=== PATIENT | female | born 1990 | race Caucasian/White ===

== ENCOUNTER 2023-11-15 06:14 | Inpatient (IN) ==
--- NOTE | 2023-11-27 09:01 | Anesthesiology Consultation ---
Date of Service November 27, 2023 Assessment & Plan (1) Encounter for pre-operative examination: - Per inside sales account representative on 11/27/23: No known infectious disease contacts, current infectious disease symptoms in past 10 days or COVID positive test result in the past 30 days. Chart Review Chart Review: medical data entry clerk initiated History Surgery Operation Date: 12/01/23 07:30 Proposed Procedures p Section in LD (Delivery of Baby through Abdominal Incision) - Jose Wyatt MD, ARRONOG s Bilateral Tibal Ligation - Jose Wyatt MD, FACOG Height/Weight Height: 5 ft 6 in Weight: 76.657 kg Allergies Allergy/AdvReac Type Severity Reaction Status Date / Time No Known Allergies Allergy Verified 11/27/23 08:31 Medications Home Medications Medication Instructions Recorded Confirmed Last Taken vits no.124-ferrous fum 1 tab PO DAILY 10/09/23 11/27/23 10/08/23 21:00 27 mg iron-folic acid 800 mcg tablet ( Vitamin) Past Medical History Medical History (Updated 11/27/23 @ 08:57 by Anabell Garcia PA-C) Anxiety no current meds History of COVID-19 (~2021) not hospitalized-symptoms resolved per PAT RN call Migraine hx Past Family History Family History Grandmother Colorectal cancer Breast cancer Ovarian cancer Mother Depression Seizure Brain cancer Grandfather Prostate cancer Myocardial infarction Grandfather (Maternal) Colorectal cancer Grandmother (Maternal) Skin cancer Past Surgical History Surgical History History of colonoscopy 2021 History of tonsillectomy Hx of laparoscopy Social History Smoking Status: Never smoker Do You Dip or Chew Tobacco: No Hx Alcohol Use: Yes (hx, not while ) Alcohol type: wine alcohol intake frequency: a few times a week Hx Substance Use: No substance use type: does not use
[2023-12-01 05:49] LABS: Basophils # (auto) 0.03 K/uL (0.00-0.20); Basophils % (auto) 0.3 %; Eosinophils # (auto) 0.13 K/uL (0.00-0.50); Eosinophils % (auto) 1.5 %; Hematocrit (blood only) 38.8 % (37.0-47.0); Hemoglobin 13.3 g/dl (12.0-16.0); Immature Granulocytes # (auto) 0.09 K/uL (0.01-0.20); Lymphocytes # (auto) 1.22 K/uL (1.20-3.40); Lymphocytes % (auto) 14.2 %; Mean Corpuscular Hemoglobin 31.1 pg (25.0-34.0); Mean Corpuscular Hgb Conc 34.3 g/dL (32.0-36.0); Mean Corpuscular Volume 90.9 fL (80.0-100.0); Monocytes # (auto) 0.69 K/uL (0.11-0.59); Neutrophils # (auto) 6.46 K/uL (1.40-6.50); Platelet Count 187 K/uL (130-400); RDW Coefficient of Variation 13.9 % (11.5-14.5); RDW Standard Deviation 45.9 fL (36.4-46.3); Red Blood Count 4.27 M/uL (4.20-5.40); White Blood Count 8.62 K/ul (4.8-10.8)
[2023-12-01] MEDS: LACTATED RINGER'S 1,000 ML IV SCH ×2 (05:50→19:29)
[2023-12-01] MEDS ORDERED: LACTATED RINGER'S 1,000 ML IV SCH (06:00)
[2023-12-01] MEDS ORDERED: DEXAMETHASONE SOD INJ 4 MG/ML VIAL ONE (06:35)
[2023-12-01] MEDS ORDERED: OXYTOCIN 10 UNITS/ML VIAL ONE (06:35)
[2023-12-01] MEDS ORDERED: ONDANSETRON INJ 2 MG/ML 2 ML VIAL ONE (06:35)
[2023-12-01] MEDS ORDERED: ePHEDrine sulfate 50 MG/5 ML SYR ONE (06:35)
[2023-12-01] MEDS ORDERED: PHENYLEPHRINE 100MCG/ML 10ML SYR IV ONE (06:35)
[2023-12-01] MEDS ORDERED: MoRPHine SULFATE PF 1 MG/ML 10 ML AMP/VIAL ONE (06:35)
[2023-12-01] MEDS ORDERED: KETOROLAC 30 MG/ML VIAL ONE (06:35)
[2023-12-01] MEDS ORDERED: fentaNYL citrate PF 100 MCG/2 ML VIAL ONE (06:36)
--- NOTE | 2023-12-01 06:39 | History & Physical Report ---
Date of Service December 01, 2023 Assessment & Plan (1) Breech presentation at : Plan: offered version, declines section. The patient was counseled to the nature of the procedure including alternatives such as labor. Risks were discussed including bleeding infection injury to bowel bladder ureter vessels and even baby. Deep Vein thrombosis, pulmonary embolus discussed. Breakdown of incision reviewed. Deep vein thrombosis pulmonary embolus hernia and failure of the incision to heal were discussed Patient verbalized understanding of this and was given ample time to ask questions Admission and Anticipated Discharge Date Admission Date: December 01, 2023 History of Present Illness Primary Care Provider: Duc Hinds MD Estimated Delivery Date Method Current WG Current Estimate 12/05/23 LMP (Certain) 39w 1d Other Estimates 12/05/23 Ultrasound #1 39w 1d LMP: 12/04/22 : 3 Full term: 2 Premature: 0 Total Number of Induced Abortions: 0 Total Number of Spontaneous Abortions: 0 Ectopics: 0 Multiple births: 0 Number of Living Children: 2 and Delivery Plans Reports received flu shot Echo [facility] for bilat EIF's- (08/16/23 @ [facility])--normal *low risk cfdna BREECH PRESENTATION C/S SCHEDULED FOR 12/01/[address] RIVERO Allergies Allergy/AdvReac Type Severity Reaction Status Date / Time No Known Allergies Allergy Verified 11/29/23 14:11 Home Medications Medication Instructions Recorded Confirmed Type vits no.124-ferrous fum 1 tab PO DAILY 10/09/23 12/01/23 History 27 mg iron-folic acid 800 mcg tablet ( Vitamin) Patient History Medical History (Updated 12/01/23 @ 06:39 by Jose Rivero MD, FACOG) History of COVID-19 (~2021) not hospitalized-symptoms resolved per PAT RN call Anxiety no current meds Migraine hx Surgical History Hx of laparoscopy History of colonoscopy 2021 History of tonsillectomy Family History Grandmother Colorectal cancer Breast cancer Ovarian cancer Mother Depression Seizure Brain cancer Grandfather Prostate cancer Myocardial infarction Grandfather (Maternal) Colorectal cancer Grandmother (Maternal) Skin cancer Social History Smoking Status: Never smoker Second Hand Exposure: No; Do You Dip or Chew Tobacco: No; Tobacco Cessation Education Requested by Patient: No Hx Alcohol Use: Yes (hx, not while ) Alcohol type: wine Hx Substance Use: No Preferred Language: Qatari Communication Ability: Effective Visual Impairment: No Limitations Hearing Ability: Normal Distribution Lead Required: No Beliefs That Will Affect Care: None marital status: Single marital status details: Amish (35) [phone] Current Living Situation: Spouse and Family Current Living Situation Comment: Loves with FOB, 2 children current occupational status: employed current occupation: [employer] Other Information That Helps Us Care for You: No Feels Safe at Home: Yes Safety Concerns: Feels Safe At This Time Childhood Exposure to Second-Hand Smoke: No Diet: regular Gender Identity: Female Assistive Devices: Contacts and Glasses Physical Exam Constitutional: WD/WN, vitals as above well developed and well nourished Respiratory: normal respiratory effort, lungs clear to auscultation normal respiratory effort Cardiovascular: RRR, no murmur, no edema Gastrointestinal (Abdomen): normal bowel sounds, soft, nontender, no hepatosplenomegaly Results & Data Vital Signs (Past 12 Hours) Vital Signs Temp Pulse Resp BP 12/01/23 06:36 74 102/63 12/01/23 05:32 90 109/70 12/01/23 05:30 18 12/01/23 05:30 98.6 F 18 Coding Level of Care Code None Diagnoses Breech presentation at O32.1XX0
[2023-12-01] MEDS: CITRIC ACID/SODIUM CITRATE 15 ML UDC PO SCH (07:04)
[2023-12-01] MEDS: ceFAZolin 2000MG 2,000 MG/15 ML SYR IV SCH (07:14)
[2023-12-01] MEDS ORDERED: LACTATED RINGER'S 500 ML IV PRN (08:09)
[2023-12-01] MEDS ORDERED: NALOXONE HCL 1 MG in SODIUM CHLORIDE 0.9% 1,000 ML IV PRN (08:09)
[2023-12-01] MEDS ORDERED: NALBUPHINE HCL 5 MG in SYRINGE 0 ML IV PRN (08:09)
[2023-12-01] MEDS ORDERED: HYDROmorphone INJ 0.5 MG/0.5 ML SYR IV PRN (08:09)
[2023-12-01] MEDS ORDERED: ePHEDrine sulfate 50 MG/ML AMP IV PRN (08:09)
[2023-12-01] MEDS ORDERED: diphenhydrAMINE 50 MG/ML VIAL IV PRN (08:09)
[2023-12-01] MEDS ORDERED: NALOXONE HCL 0.08 MG in SYRINGE 1.8 ML IV PRN (08:09)
[2023-12-01] MEDS ORDERED: NALOXONE HCL 0.4 MG/1 ML VIAL/CARP IV PRN (08:09)
[2023-12-01] MEDS ORDERED: DC INTRASPINAL MORPHINE SCH (08:15)
[2023-12-01] MEDS ORDERED: NO NARCOTICS OR SEDATIVES SCH (08:15)
[2023-12-01] MEDS ORDERED: MIDAZOLAM HCL 1 MG/ML 2ML VIAL ONE (08:21)
--- NOTE | 2023-12-01 08:49 | Operative Report ---
Post Operative Report Pre & Post Diagnosis Operation Date: 12/01/23 07:30 Pre-Op Diagnosis: Breech presentation at term. Requests sterilization. Post-Op Diagnosis: Breech presentation at term. Requests sterilization. Delivery of live male child at 0803. I identified the patient and participated in the time-out.: Yes Procedure Operation Date: 12/01/23 07:30 Actual Procedures p Section through lower uterine transverse incision. Delivery of live male child at 0803. - Jose Wyatt MD, FACOG s Bilateral Tibal Ligation - Jose Wyatt MD, FACOG Surgeon Jose Wyatt MD, FACOG Head Rigger Dr. Barbosa Quantitative Blood Loss (QBL) 615 Findings Consistent with Post-Op Diagnosis Specimens Cord blood Description of Procedure Regional anesthetic had been given by anesthesia patient was prepped and draped with a leftward tilt preoperative antibiotics had been given in appropriate timing by anesthesiology. Once the prep was allowed to fully dry timeout was performed. Pickups with teeth were used to test the incision area was found to be adequate for incision as the patient did not feel sharp pain. Scalpel was used to make a Pfannenstiel incision on the lower abdomen. We then cut through the subcutaneous fat down to the level of the anterior rectus sheath fascia this was cut in the midline and then extended laterally with the curved Wallace scissors. At this stage we then placed 2 Marcel clamps on the anterior aspect of the fascia. Using the curved Wallace's we are able to dissect the fascia superiorly away from the rectus muscles. Care was taken to maintain hemostasis. Marcel clamps were then placed to the inferior aspect of the anterior sheath of the fascia. Fascia was then dissected away from the rectus muscles inferiorly towards the pubic bone. A Marcel was then placed in the midline both inferiorly and superiorly. This was to allow exposure by retraction rectus muscles were in the midline with were then able to cut through the peritoneum and then enter the peritoneal cavity. Opening was enlarged to allow exposure of the peritoneal cavity both superiorly and inferiorly. Once adequate space was obtained a bladder retractor was placed to expose the lower segment Metzenbaums were used to dissect the bladder flap inferiorly away from the uterus. This was done sharply bladder retractor was then repositioned to expose the lower segment of the uterus Fresh scalpel was used to make a low transverse incision on the uterus. Uterus was then entered bluntly with the operators finger, membranes ruptured and the opening was enlarged using the operators fingers bluntly pulling superiorly and inferiorly to allow exposure. Baby had been confirmed as sarah breech position by ultrasound prior to the procedure it was the buttocks presenting these were flexed and then elevated the back was then rotated to anterior position gentle traction on the baby delivering both legs arms were swept towards the chest and delivered there was a nuchal cord loosely around the baby's head and baby was delivered without difficulty or excessive force male infant live vigorous . Fluid was clear cord clamped and cut cord blood obtained baby handed to pediatrics. Placenta removed was removed with traction we ensure the entire placenta was removed with a moist lap sponge into the uterus Uterus was then exteriorized. IV Pitocin had been started by anesthesia tone improved there were no extensions the uterus was then closed using 0 Monocryl in a 2 layer closure the first layer closed in a running locked fashion from left to right and then a second closure from left to right in a running nonlocked fashion. At this stage hemostasis was excellent. Patient had desired tubal ligation this was confirmed before the procedure the right fallopian tube was grasped with a [place] using the LigaSure we carefully dissected the fallopian tube from the attachments and vessels. Coagulating then cutting tube was then removed at the isthmic and. Care was made to ensure coagulation and excellent hemostasis The exact same process was repeated on the right side should be noted once the uterus was placed back in the peritoneal cavity the tubal ligation sites were inspected and hemostatic Uterus was placed back in the peritoneal cavity with suction irrigation out and inspection of the uterus at this stage revealed excellent hemostasis Retractors were removed urine color was clear at this stage of the case we inspected the rectus muscles they were hemostatic fascia was closed with 0 Vicryl subcutaneous fat was irrigated and closed with 3-0 Vicryl skin closed with 4-0 subcuticular Monocryl I attest to the content of the Intraoperative Record and any orders documented therein. Any exceptions are noted below. OB Procedure Charges [id number] Add on Tubal for C/S
--- NOTE | 2023-12-01 08:52 | Anesthesiology Progress Note ---
Date of Service December 01, 2023 Anesthesia Post Procedure Vital Signs Vital Signs: Temp Pulse Resp BP Pulse Ox 12/01/23 08:50 72 98 12/01/23 08:46 73 112/66 91 12/01/23 07:02 70 110/66 12/01/23 06:36 74 102/63 12/01/23 05:32 90 109/70 12/01/23 05:30 18 12/01/23 05:30 37.0 C 18 Transfer of Care Handoff Completed per policy Notes Mental Status: alert / awake / arousable and participated in evaluation Patient Amnestic to Procedure: No Nausea / Vomiting: adequately controlled Pain: adequately controlled Airway Patency, RR, SpO2: stable & adequate BP & HR: stable & adequate Hydration State: stable & adequate Neuraxial Anesthesia: was administered and sensory block is resolving Anesthetic Complications: no major complications apparent and Pt Satisfied with anesthetic care
[2023-12-01] MEDS ORDERED: HYDROCORTISONE ACETATE 25 MG SUPP PR PRN (09:09)
[2023-12-01] MEDS ORDERED: SENNA 8.6 MG TAB PO PRN (09:09)
[2023-12-01] MEDS ORDERED: BENZOCAINE 20% SPRY 85 APPLN/85 GM CAN EXT PRN (09:09)
[2023-12-01] MEDS ORDERED: MAGNESIUM HYDROXIDE SUSP 30 ML UDC PO PRN (09:09)
[2023-12-01] MEDS: OXYTOCIN 20 UNITS/LR 1,002 ML IV SCH (11:05)
[2023-12-01] MEDS: ONDANSETRON INJ 2 MG/ML 2 ML VIAL IV PRN (12:24)
[2023-12-01] MEDS: KETOROLAC 30 MG/ML VIAL IV PRN (12:39)
[2023-12-01] MEDS: SIMETHICONE 80 MG CHEW PO SCH (13:05)
[2023-12-01] MEDS: PROMETHAZINE HCL 6.25 MG in SODIUM CHLORIDE 0.9% 50 ML IV PRN (13:48)
[2023-12-01] MEDS: DOCUSATE SODIUM 100 MG CAP PO SCH (21:50)
[2023-12-02] MEDS: DIPHTHER/TETAN/PERTUS Vaccine (Tdap, Adol/Adult) 0.5mL IM ONE (01:44)
[2023-12-02] MEDS ORDERED: diphenhydrAMINE Capsule 25 MG CAP PO PRN (02:09)
[2023-12-02] MEDS ORDERED: PROMETHAZINE HCL 25 MG in SODIUM CHLORIDE 0.9% 50 ML IV PRN (02:09)
[2023-12-02] MEDS ORDERED: ONDANSETRON INJ 2 MG/ML 2 ML VIAL IV PRN (02:09)
[2023-12-02] MEDS ORDERED: diphenhydrAMINE 50 MG/ML VIAL IV PRN (02:09)
[2023-12-02] MEDS ORDERED: KETOROLAC 30 MG/ML VIAL IV PRN (02:09)
[2023-12-02] MEDS: IBUPROFEN 600 MG TAB PO PRN (05:22)
[2023-12-02] MEDS: oxyCODONE/ACETAMINOPHEN 5mg/325mg TAB PO PRN (05:22)
--- NOTE | 2023-12-02 06:46 | Obstetrical Progress Note ---
Date of Service December 02, 2023 Assessment & Plan (1) Encounter for care and examination after delivery: 33 yo POD 1 from primary CS, doing well -Meeting all pp milestones -Rh+/rubella immune/ -Continue routine care Subjective Ambulation: ambulating normally Voiding: no voiding problems Passing Gas:: No Diet Tolerance:: regular diet Lochia:: Small Feeding Type:: breast feeding Pain well managed with medication Review of Systems Denies fevers, chills, n/v, PHAN, CP, SOB Physical Exam Constitutional WD/WN, vitals as above no acute distress Respiratory normal respiratory effort, lungs clear to auscultation Cardiovascular RRR, no murmur, no edema Gastrointestinal (Abdomen) Percussion/Palpation: abdomen soft; abdomen nontender fundus firm at umbilicus and NT, dressing c/d/i Musculoskeletal BLE symmetric, nonerythematous, nontender Results & Data Vital Signs (Past 12 Hours) Vital Signs Temp Pulse Resp BP Pulse Ox O2 Del Method 12/02/23 03:00 98.2 F 80 18 99/64 L 97 Room Air 12/02/23 02:20 18 96 12/02/23 01:25 18 91 12/02/23 00:20 Room Air 12/02/23 00:20 97.5 F L 70 18 92/56 L 95 Room Air 12/02/23 00:20 18 95 12/01/23 23:55 18 94 12/01/23 22:30 20 96 12/01/23 21:55 20 94 12/01/23 20:55 20 96 12/01/23 19:30 20 96 12/01/23 19:30 98.4 F 81 20 89/49 L 96 Room Air 12/01/23 18:55 20 95
[2023-12-02] MEDS: MoRPHine SULFATE PF 1 MG/ML 10 ML AMP/VIAL INT SPINAL ONE (07:29)
[2023-12-02] MEDS: SODIUM CHLORIDE 0.9% 1,000 ML IV SCH (07:29)
[2023-12-02 08:31] LABS: Basophils # (auto) 0.03 K/uL (0.00-0.20); Basophils % (auto) 0.3 %; Eosinophils # (auto) 0.08 K/uL (0.00-0.50); Eosinophils % (auto) 0.8 %; Hematocrit (blood only) 34.4 % (37.0-47.0); Hemoglobin 11.2 g/dl (12.0-16.0); Lymphocytes # (auto) 0.82 K/uL (1.20-3.40); Mean Corpuscular Hemoglobin 30.9 pg (25.0-34.0); Mean Corpuscular Hgb Conc 32.6 g/dL (32.0-36.0); Mean Platelet Volume 10.6 fL (9.4-12.4); Monocytes % (auto) 6.8 %; Neutrophils # (auto) 8.57 K/uL (1.40-6.50); Neutrophils % (auto) 83.1 %; Platelet Count 166 K/uL (130-400); RDW Coefficient of Variation 14.1 % (11.5-14.5); RDW Standard Deviation 48.5 fL (36.4-46.3); Red Blood Count 3.62 M/uL (4.20-5.40)
[2023-12-02] MEDS: FERROUS SULFATE 325 MG TAB PO SCH (08:37)
[2023-12-02] MEDS: PRENATAL VITAMIN 1 TAB PO SCH (08:37)
[2023-12-02] MEDS: bisacodyL 5 MG TABEC PO SCH (19:26)
[2023-12-03 07:07] LABS: Hematocrit (blood only) 33.7 % (37.0-47.0); Hemoglobin 11.3 g/dl (12.0-16.0)
[2023-12-03] MEDS ORDERED: bisacodyL 10 MG SUPP PR PRN (08:43)
--- NOTE | 2023-12-03 08:54 | Obstetrical Progress Note ---
Date of Service December 03, 2023 Assessment & Plan (1) Encounter for care and examination after delivery: Postoperative from section patient meets discharge criteria as she is ambulating well tolerating an oral diet has minimal bleeding and no extremity pain. Discharge instructions were reviewed and prescriptions were sent to her pharmacy of choice patient advised to call with any concerns and follow-up in the office discussed Incision is clean dry and intact extremity exam negative Subjective Ambulation: ambulating normally Voiding: no voiding problems Passing Gas:: Yes Diet Tolerance:: regular diet Lochia:: Small Feeding Type:: breast feeding Physical Exam Constitutional WD/WN, vitals as above well developed and well nourished Respiratory normal respiratory effort, lungs clear to auscultation normal respiratory effort Cardiovascular RRR, no murmur, no edema Gastrointestinal (Abdomen) normal bowel sounds, soft, nontender, no hepatosplenomegaly Results & Data Vital Signs (Past 12 Hours) Vital Signs Temp Pulse Resp BP Pulse Ox O2 Del Method 12/03/23 07:33 98.2 F 68 16 110/74 97 Room Air 12/03/23 04:40 97.9 F 81 18 100/63 97 Room Air
== END 2023-12-03 10:40 | disposition home or self-care (01) | DRG 785 ==
LOC: 4S1 12-01 05:19 → EDSTATUS 12-01 10:35 → 4E2 12-01 11:46
PROC: M.PPTLD (2023-12-01 07:30)
DX: Z3A.39 39 weeks gestation of pregnancy; O69.81X0 Labor and delivery complicated by cord around neck, without compression, not applicable or unspecified; O32.1XX0 Maternal care for breech presentation, not applicable or unspecified; Z37.0 Single live birth